=== PATIENT | male | born 1955 | race Caucasian/White ===

== ENCOUNTER 2018-03-08 10:42 | Inpatient (IN) ==
[2018-03-08 12:03] LABS: Basophils % 0.7 % (0.0-0.8); Eosinophils # 0.2 10*3/uL (0.0-0.87); Eosinophils % 3.2 % (0.00-10.9); Hemoglobin 14.9 GM/DL (14.0-18.0); Immature Granulocytes % 0.3 %; Immature Granulocytes Absolute 0.02 #; Lymphocytes # 3.1 10*3/uL (1.4-4.0); Lymphocytes % 51.7 % (21.2-54.2); Mean Corpuscular HGB Conc 33.1 GM/DL (32-36); Mean Corpuscular Hemoglobin 31 PG (27-34); Mean Platelet Volume 9.1 FL (9.6-12.0); Monocytes # 0.7 10*3/uL (0.11-0.8); Monocytes % 11.5 % (1.7-12.7); Neutrophils # 1.9 10*3/uL (1.4-7.4); Neutrophils % 32.6 % (38.7-73.9); Platelet Count 241 T/CUMM (130-400); Red Blood Count 4.89 MC/CUMM (3.8-5.5); Red Cell Distribution Width 13.4 % (9.3-17.3); White Blood Count 5.9 T/CUMM (4-12)
[2018-03-08 12:19] LABS: Bilirubin,Total 0.4 MG/DL (0.2-1.0); Osmolality,Calculated 279.5 MOS/KG (273-304); Potassium 4.1 MMOL/L (3.5-5.1); Total Protein 8.2 G/DL (6.4-8.3)
[2018-03-08 12:22] LABS: INR 1.1; PT Patient Result 11.4 SECS; Partial Thromboplastin Time 28.8 SECS (0-40)
[2018-03-08 12:50] LABS: Eosinophils 3 % (0-10); Lymphocytes 63 % (20-55); Platelet Estimate Normal; Segmented Neutrophils 25 % (50-85); Total Cells Counted 100
[2018-03-08] MEDS ORDERED: NITROGLYCERIN 2% OINT 1 INCH/GM PACK TOP STA (13:26)
[2018-03-08] MEDS ORDERED: ENOXAPARIN 100 MG/ML SYRINGE SUBCUT STA (13:26)
[2018-03-08] MEDS ORDERED: ASPIRIN 325 MG TABLET PO STA (13:26)
[2018-03-08] MEDS ORDERED: DIAZEPAM 5 MG TABLET PO ONE (14:17)
[2018-03-08] MEDS ORDERED: diphenhydrAMINE CAP 25 MG CAPSULE PO ONE (14:17)
[2018-03-08] MEDS ORDERED: HEPARIN/NACL 0.9% 2 UNITS/ML 1,000 ML IV ONE (14:39)
[2018-03-08] MEDS ORDERED: MIDAZOLAM 2 MG/2 ML VIAL ONE ×2 (14:56→15:11)
[2018-03-08] MEDS ORDERED: NITROGLYCERIN DRIP 50 MG/250 ML BOTTLE IV ONE (14:56)
[2018-03-08] MEDS ORDERED: LIDOCAINE 1% 20 ML VIAL ONE (14:56)
[2018-03-08] MEDS ORDERED: VERAPAMIL 5 MG/2 ML VIAL ONE (14:56)
[2018-03-08] MEDS ORDERED: fentaNYL 100 MCG/2 ML VIAL ONE (14:56)
[2018-03-08] MEDS ORDERED: TICAGRELOR 90 MG TABLET ONE (15:21)
[2018-03-08] MEDS ORDERED: ENOXAPARIN 60 MG/0.6 ML SYRINGE ONE ×2 (15:21→15:23)
[2018-03-08] MEDS ORDERED: HEPARIN/NACL 0.9% 2 UNITS/ML 500 ML IV ONE (15:29)
[2018-03-08] MEDS ORDERED: ONDANSETRON 4 MG/2 ML VIAL IV PRN (15:52)
[2018-03-08] MEDS ORDERED: NITROGLYCERIN SL 0.4 MG TABLET SL PRN (15:52)
[2018-03-08] MEDS ORDERED: ZALEPLON 5 MG CAPSULE PO PRN (15:52)
[2018-03-08] MEDS ORDERED: LORazepam 0.5 MG TABLET PO PRN (15:58)
[2018-03-08] MEDS ORDERED: NITROGLYCERIN DRIP 50 MG/250 ML BOTTLE IV PRN (16:12)
[2018-03-08] MEDS: SODIUM CHLORIDE 0.45% 1,000 ML IV SCH ×2 (16:36→23:33)
[2018-03-08] MEDS: MORPHINE 4 MG/1 ML VIAL IV PRN ×2 (16:37→23:13)
[2018-03-08] MEDS: PANTOPRAZOLE 40 MG TABLET PO SCH (16:40)
[2018-03-08] MEDS: LISINOPRIL 2.5 MG TABLET PO SCH (16:40)
[2018-03-08] MEDS: NICOTINE 21 MG/24 HR PATCH TRANSDERM SCH (18:17)
[2018-03-08] MEDS: ROSUVASTATIN 20 MG TABLET PO SCH (22:24)
[2018-03-08] MEDS: TICAGRELOR 90 MG TABLET PO SCH (22:25)
[2018-03-08] MEDS: CARVEDILOL 3.125 MG TABLET PO SCH (22:25)
[2018-03-09] MEDS: SODIUM CHLORIDE 0.45% 1,000 ML IV SCH ×3 (03:09→10:57)
[2018-03-09 05:48] LABS: Basophils % 0.4 % (0.0-0.8); Eosinophils # 0.1 10*3/uL (0.0-0.87); Eosinophils % 1.6 % (0.00-10.9); Hematocrit 39.6 VOL% (42.0-52.0); Immature Granulocytes % 0.4 %; Immature Granulocytes Absolute 0.04 #; Lymphocytes % 33.1 % (21.2-54.2); Mean Corpuscular HGB Conc 32.8 GM/DL (32-36); Mean Corpuscular Hemoglobin 30 PG (27-34); Mean Corpuscular Volume 90.8 FL (87-102); Mean Platelet Volume 8.8 FL (9.6-12.0); Monocytes # 0.8 10*3/uL (0.11-0.8); Monocytes % 8.6 % (1.7-12.7); Neutrophils % 55.9 % (38.7-73.9); Platelet Count 223 T/CUMM (130-400); Red Blood Count 4.36 MC/CUMM (3.8-5.5); Red Cell Distribution Width 13.3 % (9.3-17.3)
[2018-03-09 06:05] LABS: Calcium 8.1 MG/DL (8.5-10.1); Osmolality,Calculated 275.7 MOS/KG (273-304); Potassium 3.8 MMOL/L (3.5-5.1)
[2018-03-09 06:07] LABS: Risk Ratio 4.86; VLDL CHOLESTEROL 39.4 MG/DL
[2018-03-09] MEDS: ASPIRIN EC 81 MG TABLET PO SCH (08:08)
[2018-03-09] MEDS: PANTOPRAZOLE 40 MG TABLET PO SCH (08:08)
[2018-03-09] MEDS: LISINOPRIL 2.5 MG TABLET PO SCH (08:08)
[2018-03-09] MEDS: CARVEDILOL 3.125 MG TABLET PO SCH ×2 (08:08→16:57)
[2018-03-09] MEDS: NICOTINE 21 MG/24 HR PATCH TRANSDERM SCH (08:08)
[2018-03-09] MEDS: TICAGRELOR 90 MG TABLET PO SCH ×2 (08:08→20:31)
[2018-03-09] MEDS: ROSUVASTATIN 20 MG TABLET PO SCH (20:31)
[2018-03-10 05:37] LABS: Basophils % 0.7 % (0.0-0.8); Eosinophils # 0.2 10*3/uL (0.0-0.87); Eosinophils % 2.6 % (0.00-10.9); Hematocrit 42.2 VOL% (42.0-52.0); Immature Granulocytes % 0.3 %; Immature Granulocytes Absolute 0.02 #; Lymphocytes # 2.7 10*3/uL (1.4-4.0); Lymphocytes % 44.3 % (21.2-54.2); Mean Corpuscular HGB Conc 33.2 GM/DL (32-36); Mean Corpuscular Hemoglobin 30 PG (27-34); Mean Corpuscular Volume 90.8 FL (87-102); Mean Platelet Volume 8.9 FL (9.6-12.0); Monocytes # 0.7 10*3/uL (0.11-0.8); Monocytes % 11.6 % (1.7-12.7); Neutrophils # 2.5 10*3/uL (1.4-7.4); Neutrophils % 40.5 % (38.7-73.9); Platelet Count 225 T/CUMM (130-400); Red Blood Count 4.65 MC/CUMM (3.8-5.5); Red Cell Distribution Width 13.3 % (9.3-17.3); White Blood Count 6.1 T/CUMM (4-12)
[2018-03-10 06:15] LABS: Calcium 8.3 MG/DL (8.5-10.1); Osmolality,Calculated 281.3 MOS/KG (273-304); Potassium 3.8 MMOL/L (3.5-5.1)
[2018-03-10 07:45] VITALS: BP 126/75
[2018-03-10] MEDS: LISINOPRIL 2.5 MG TABLET PO SCH (08:34)
[2018-03-10] MEDS: TICAGRELOR 90 MG TABLET PO SCH (08:34)
[2018-03-10] MEDS: PANTOPRAZOLE 40 MG TABLET PO SCH (08:34)
[2018-03-10] MEDS: ASPIRIN EC 81 MG TABLET PO SCH (08:34)
[2018-03-10] MEDS: CARVEDILOL 3.125 MG TABLET PO SCH (08:34)
[2018-03-10] MEDS: NICOTINE 21 MG/24 HR PATCH TRANSDERM SCH (08:35)
== END 2018-03-10 11:24 | disposition home or self-care (01) | DRG 247 ==
LOC: N.ED 10:42 → N.EDINP 14:17 → N.ICU 16:07 → N.TELES 03-09 12:37
PROVIDERS: ADMIT Internal Medicine Cardiovascular Disease; ATTEND Internal Medicine Cardiovascular Disease
PROC: CLCCHCL (ICD-10-PCS; 2018-03-08 15:30)

== ENCOUNTER 2021-10-27 20:58 | Inpatient (IN) ==
[2021-10-27] MEDS ORDERED: ASPIRIN 325 MG TABLET PO STA (22:55)
[2021-10-27] MEDS ORDERED: SODIUM CHLORIDE 0.9% 500 ML IV STA (22:55)
[2021-10-27] MEDS ORDERED: NITROGLYCERIN 2% OINT 1 INCH/GM PACK TOP STA (22:55)
[2021-10-27] MEDS ORDERED: MORPHINE 2 MG/1 ML SYRINGE IV STA (22:55)
[2021-10-27] MEDS ORDERED: ALUM/MAG/SIMETH/LIDO VISC 1:1 30 ML BOTTLE PO STA (22:55)
[2021-10-27] MEDS ORDERED: ONDANSETRON 4 MG/2 ML VIAL IV STA (22:55)
[2021-10-27] MEDS ORDERED: PANTOPRAZOLE 40 MG VIAL IV STA (22:55)
[2021-10-27] MEDS ORDERED: ENOXAPARIN 100 MG/ML SYRINGE SUBCUT STA (23:00)
[2021-10-28 00:11] LABS: Alanine Aminotransferase 28 U/L (16-61); Albumin 3.8 G/DL (3.4-5.0); Alkaline Phosphatase 62 U/L (45-117); Aspartate Amino Transferase 21 U/L (0-37); Bilirubin,Total < 0.39 MG/DL (0.20-1.00); Blood Urea Nitrogen 13 MG/DL (7-18); Calcium 9.3 MG/DL (8.5-10.1); Carbon Dioxide 27 MMOL/L (21-32); Chloride 109 MMOL/L (98-107); Estimated Glom Filtration Rate 73 ML/MIN; Glucose 145 MG/DL (74-106); Osmolality,Calculated 283.3 MOS/KG (273-304); Potassium 4.5 MMOL/L (3.5-5.1); Sodium 141 MMOL/L (136-145); Total Protein 7.3 G/DL (6.4-8.2)
[2021-10-28 00:34] LABS: Basophils # 0.1 10*3/uL (0.0-0.2); Basophils % 0.9 % (0.0-0.8); Eosinophils # 0.2 10*3/uL (0.0-0.87); Eosinophils % 2.5 % (0.00-10.9); Hematocrit 47.1 VOL% (42.0-52.0); Hemoglobin 15.4 GM/DL (14.0-18.0); Immature Granulocytes % 0.7 %; Immature Granulocytes Absolute 0.06 #; Lymphocytes # 3.9 10*3/uL (1.4-4.0); Lymphocytes % 47.9 % (21.2-54.2); Mean Corpuscular HGB Conc 32.7 GM/DL (32-36); Mean Corpuscular Volume 102.8 FL (87-102); Mean Platelet Volume 9.6 FL (9.6-12.0); Monocytes # 0.8 10*3/uL (0.11-0.8); Monocytes % 9.4 % (1.7-12.7); Neutrophils % 38.6 % (38.7-73.9); Platelet Count 227 T/CUMM (130-400); Red Blood Count 4.58 MC/CUMM (3.8-5.5); Red Cell Distribution Width 13.1 % (9.3-17.3); White Blood Count 8.1 T/CUMM (4-12)
[2021-10-28 00:57] LABS: Eosinophils 2 % (0-10); Lymphocytes 49 % (20-55); Platelet Estimate Adequate; Total Cells Counted 100
[2021-10-28] MEDS ORDERED: NICOTINE 21 MG/24 HR PATCH TRANSDERM PRN (02:07)
[2021-10-28] MEDS ORDERED: GLUCAGON 1 MG VIAL IM PRN (02:07)
[2021-10-28] MEDS ORDERED: hydrALAZINE 20 MG/1 ML VIAL IV PRN (02:07)
[2021-10-28] MEDS ORDERED: ONDANSETRON 4 MG/2 ML VIAL IV PRN (02:07)
[2021-10-28] MEDS ORDERED: SIMETHICONE CHEW 125 MG TABLET PO PRN (02:07)
[2021-10-28] MEDS ORDERED: NITROGLYCERIN SL 0.4 MG TABLET SL PRN (02:12)
[2021-10-28] MEDS ORDERED: DEXTROSE 10% 250 ML BAG IV PRN (02:16)
[2021-10-28] MEDS ORDERED: ENOXAPARIN 80 MG/0.8 ML SYRINGE SUBCUT SCH (02:30)
[2021-10-28 04:30] LABS: Basophils # 0.1 10*3/uL (0.0-0.2); Basophils % 1.2 % (0.0-0.8); Eosinophils # 0.1 10*3/uL (0.0-0.87); Immature Granulocytes % 0.8 %; Immature Granulocytes Absolute 0.05 #; Lymphocytes # 3.6 10*3/uL (1.4-4.0); Lymphocytes % 55.6 % (21.2-54.2); Mean Corpuscular HGB Conc 32.6 GM/DL (32-36); Mean Corpuscular Volume 103.6 FL (87-102); Mean Platelet Volume 9.5 FL (9.6-12.0); Monocytes # 0.6 10*3/uL (0.11-0.8); Monocytes % 9.3 % (1.7-12.7); Neutrophils % 31.1 % (38.7-73.9); Platelet Count 193 T/CUMM (130-400); Red Blood Count 4.15 MC/CUMM (3.8-5.5); Red Cell Distribution Width 13.1 % (9.3-17.3); White Blood Count 6.5 T/CUMM (4-12)
[2021-10-28 05:05] LABS: Osmolality,Calculated 283.1 MOS/KG (273-304); Potassium 4.6 MMOL/L (3.5-5.1); Risk Ratio 4.24; VLDL Cholesterol 24.2 MG/DL
[2021-10-28 05:11] LABS: Eosinophils 2 % (0-10); Lymphocytes 55 % (20-55); Total Cells Counted 100
[2021-10-28 05:12] LABS: Platelet Estimate Adequate
[2021-10-28 05:13] LABS: Macrocytosis 1+
[2021-10-28] MEDS: INSULIN REGULAR 100 UNIT/ML SUBCUT SCH ×4 (07:52→21:34)
[2021-10-28] MEDS: carvediloL 3.125 MG TABLET PO SCH ×2 (07:56→17:25)
[2021-10-28] MEDS: SODIUM CHLORIDE 0.9% 1,000 ML IV SCH ×3 (07:56→23:30)
[2021-10-28] MEDS ORDERED: MAGNESIUM SULF RIDER 2 GM/50 ML PREMIX IV PRN (07:57)
[2021-10-28] MEDS ORDERED: POTASSIUM CHLORIDE RIDER 10 MEQ/100 ML PREMIX IV PRN (07:57)
[2021-10-28] MEDS: DOCUSATE SODIUM 100 MG CAPSULE PO SCH ×2 (09:15→21:20)
[2021-10-28] MEDS: ZINC GLUCONATE 50 MG TABLET PO SCH (09:15)
[2021-10-28] MEDS: PANTOPRAZOLE 40 MG TABLET PO SCH (09:15)
[2021-10-28] MEDS: ASPIRIN 325 MG TABLET PO SCH (09:15)
[2021-10-28] MEDS: lisinopriL 10 MG TABLET PO SCH (09:15)
[2021-10-28] MEDS: ISOSORBIDE MONONITRATE 30 MG TABLET PO SCH (09:15)
[2021-10-28] MEDS ORDERED: HEPARIN/NACL 0.9% 2 UNITS/ML 2,000 UNIT/1,000 ML BAG IV ONE (10:16)
[2021-10-28] MEDS ORDERED: diphenhydrAMINE CAP 25 MG CAPSULE ONE (11:05)
[2021-10-28] MEDS: ENOXAPARIN 80 MG/0.8 ML SYRINGE SUBCUT SCH ×2 (11:11→22:53)
[2021-10-28] MEDS ORDERED: diphenhydrAMINE CAP 50 MG CAPSULE PO ONE (11:15)
[2021-10-28] MEDS ORDERED: DIAZEPAM 5 MG TABLET PO ONE (11:15)
[2021-10-28] MEDS ORDERED: NITROGLYCERIN DRIP 50 MG/250 ML BOTTLE IV ONE (12:06)
[2021-10-28] MEDS ORDERED: fentaNYL 100 MCG/2 ML VIAL ONE (12:06)
[2021-10-28] MEDS ORDERED: MIDAZOLAM 2 MG/2 ML VIAL ONE (12:06)
[2021-10-28] MEDS ORDERED: VERAPAMIL 5 MG/2 ML VIAL ONE (12:07)
[2021-10-28] MEDS ORDERED: ENOXAPARIN 60 MG/0.6 ML SYRINGE ONE (12:28)
[2021-10-28] MEDS ORDERED: TICAGRELOR 90 MG TABLET ONE (13:00)
[2021-10-28] MEDS: NON-FORMULARY MEDICATION (Bictegrav-Emtricit-Tenofov Ala [Biktarvy] 50-200-25 mg Tablet) PO SCH (15:26)
[2021-10-28] MEDS: ACETAMINOPHEN 325 MG TABLET PO PRN (17:28)
[2021-10-28] MEDS: TICAGRELOR 90 MG TABLET PO SCH (21:20)
[2021-10-28] MEDS: ATORVASTATIN 40 MG TABLET PO SCH (21:20)
[2021-10-29] MEDS: ACETAMINOPHEN 325 MG TABLET PO PRN (04:27)
[2021-10-29 04:51] LABS: Basophils # 0.1 10*3/uL (0.0-0.2); Basophils % 1.1 % (0.0-0.8); Eosinophils # 0.2 10*3/uL (0.0-0.87); Eosinophils % 1.8 % (0.00-10.9); Hematocrit 44.1 VOL% (42.0-52.0); Hemoglobin 14.2 GM/DL (14.0-18.0); Immature Granulocytes % 0.5 %; Immature Granulocytes Absolute 0.04 #; Lymphocytes # 3.2 10*3/uL (1.4-4.0); Mean Corpuscular HGB Conc 32.2 GM/DL (32-36); Mean Corpuscular Volume 103.3 FL (87-102); Mean Platelet Volume 9.2 FL (9.6-12.0); Monocytes # 0.9 10*3/uL (0.11-0.8); Monocytes % 10.1 % (1.7-12.7); Neutrophils % 48.5 % (38.7-73.9); Platelet Count 194 T/CUMM (130-400); Red Blood Count 4.27 MC/CUMM (3.8-5.5); Red Cell Distribution Width 13.3 % (9.3-17.3); White Blood Count 8.4 T/CUMM (4-12)
[2021-10-29 05:05] LABS: Calcium 8.2 MG/DL (8.5-10.1); Potassium 4.8 MMOL/L (3.5-5.1)
[2021-10-29] MEDS: INSULIN REGULAR 100 UNIT/ML SUBCUT SCH ×4 (08:34→21:53)
[2021-10-29] MEDS: TICAGRELOR 90 MG TABLET PO SCH ×2 (09:22→21:52)
[2021-10-29] MEDS: lisinopriL 10 MG TABLET PO SCH (09:22)
[2021-10-29] MEDS: ASPIRIN 325 MG TABLET PO SCH (09:22)
[2021-10-29] MEDS: ISOSORBIDE MONONITRATE 30 MG TABLET PO SCH (09:22)
[2021-10-29] MEDS: carvediloL 3.125 MG TABLET PO SCH (09:22)
[2021-10-29] MEDS: PANTOPRAZOLE 40 MG TABLET PO SCH (09:22)
[2021-10-29] MEDS: ZINC GLUCONATE 50 MG TABLET PO SCH (09:22)
[2021-10-29] MEDS: DOCUSATE SODIUM 100 MG CAPSULE PO SCH ×2 (09:23→21:52)
[2021-10-29] MEDS: NON-FORMULARY MEDICATION (Bictegrav-Emtricit-Tenofov Ala [Biktarvy] 50-200-25 mg Tablet) PO SCH (09:31)
[2021-10-29] MEDS: SODIUM CHLORIDE 0.9% 1,000 ML IV SCH (09:34)
[2021-10-29] MEDS: carvediloL 6.25 MG TABLET PO SCH (16:47)
[2021-10-29] MEDS: ATORVASTATIN 40 MG TABLET PO SCH (21:52)
[2021-10-29] MEDS ORDERED: ENOXAPARIN 40 MG/0.4 ML SYRINGE SUBCUT SCH (22:00)
[2021-10-30 05:27] LABS: Basophils # 0.1 10*3/uL (0.0-0.2); Eosinophils # 0.1 10*3/uL (0.0-0.87); Eosinophils % 1.8 % (0.00-10.9); Hematocrit 42.6 VOL% (42.0-52.0); Immature Granulocytes % 0.3 %; Immature Granulocytes Absolute 0.02 #; Lymphocytes # 3.4 10*3/uL (1.4-4.0); Lymphocytes % 47.5 % (21.2-54.2); Mean Corpuscular HGB Conc 32.9 GM/DL (32-36); Mean Corpuscular Volume 103.4 FL (87-102); Mean Platelet Volume 9.7 FL (9.6-12.0); Monocytes # 0.7 10*3/uL (0.11-0.8); Monocytes % 9.8 % (1.7-12.7); Neutrophils % 39.6 % (38.7-73.9); Platelet Count 201 T/CUMM (130-400); Red Blood Count 4.12 MC/CUMM (3.8-5.5); White Blood Count 7.1 T/CUMM (4-12)
[2021-10-30 05:45] LABS: Calcium 9.2 MG/DL (8.5-10.1); Osmolality,Calculated 284.1 MOS/KG (273-304); Potassium 4.2 MMOL/L (3.5-5.1)
[2021-10-30 06:58] LABS: Eosinophils 2 % (0-10); Lymphocytes 33 % (20-55); Platelet Estimate Adequate; Total Cells Counted 100
[2021-10-30 08:02] VITALS: BP 171/87
[2021-10-30] MEDS ORDERED: ASPIRIN EC 81 MG TABLET PO SCH (09:00)
[2021-10-30] MEDS: INSULIN REGULAR 100 UNIT/ML SUBCUT SCH (10:14)
[2021-10-30] MEDS: ZINC GLUCONATE 50 MG TABLET PO SCH (10:15)
[2021-10-30] MEDS: lisinopriL 10 MG TABLET PO SCH (10:15)
[2021-10-30] MEDS: carvediloL 6.25 MG TABLET PO SCH (10:15)
[2021-10-30] MEDS: TICAGRELOR 90 MG TABLET PO SCH (10:16)
[2021-10-30] MEDS: ISOSORBIDE MONONITRATE 30 MG TABLET PO SCH (10:16)
[2021-10-30] MEDS: PANTOPRAZOLE 40 MG TABLET PO SCH (10:16)
[2021-10-30] MEDS: DOCUSATE SODIUM 100 MG CAPSULE PO SCH (10:17)
[2021-10-30] MEDS: NON-FORMULARY MEDICATION (Bictegrav-Emtricit-Tenofov Ala [Biktarvy] 50-200-25 mg Tablet) PO SCH (10:17)
[2021-11-06] MEDS ORDERED: CYANOCOBALAMIN 1000 MCG/1 ML VIAL IM SCH (07:00)
== END 2021-10-30 10:45 | disposition home or self-care (01) | DRG 247 ==
LOC: N.ED 20:58 → N.EDINP 10-28 02:07 → N.TELEN 10-28 11:50
PROVIDERS: ADMIT Internal Medicine; ATTEND Internal Medicine

== ENCOUNTER 2022-04-09 14:38 | Observation (INO) ==
[2022-04-09] MEDS ORDERED: NITROGLYCERIN SL 0.4 MG TABLET SL STA (15:02)
[2022-04-09] MEDS ORDERED: ASPIRIN CHEW 81 MG TABLET PO STA (15:02)
[2022-04-09] MEDS ORDERED: MORPHINE 2 MG/1 ML SYRINGE IV STA (15:03)
[2022-04-09 15:20] LABS: Basophils # 0.1 10*3/uL (0.0-0.2); Basophils % 1.2 % (0.0-0.8); Eosinophils # 0.2 10*3/uL (0.0-0.87); Eosinophils % 2.4 % (0.00-10.9); Hematocrit 49.2 VOL% (42.0-52.0); Hemoglobin 16.6 GM/DL (14.0-18.0); Immature Granulocytes % 0.4 %; Immature Granulocytes Absolute 0.03 #; Lymphocytes # 3.9 10*3/uL (1.4-4.0); Mean Corpuscular HGB Conc 33.7 GM/DL (32-36); Mean Corpuscular Volume 101.4 FL (87-102); Mean Platelet Volume 9.2 FL (9.6-12.0); Monocytes # 0.8 10*3/uL (0.11-0.8); Monocytes % 10.1 % (1.7-12.7); Neutrophils % 33.9 % (38.7-73.9); Platelet Count 213 T/CUMM (130-400); Red Blood Count 4.85 MC/CUMM (3.8-5.5); White Blood Count 7.6 T/CUMM (4-12)
[2022-04-09 15:40] LABS: Albumin 3.8 G/DL (3.4-5.0); Bilirubin,Total 0.4 MG/DL (0.20-1.00); Osmolality,Calculated 263.5 MOS/KG (273-304); Potassium 3.7 MMOL/L (3.5-5.1); Total Protein 8.1 G/DL (6.4-8.2)
[2022-04-09 15:41] LABS: Eosinophils 1 % (0-10); Lymphocytes 53 % (20-55); Platelet Estimate Adequate; Total Cells Counted 100
[2022-04-09] MEDS ORDERED: DOCUSATE SODIUM 100 MG CAPSULE PO PRN (17:17)
[2022-04-09] MEDS ORDERED: MORPHINE 2 MG/1 ML SYRINGE IV PRN (17:17)
[2022-04-09] MEDS ORDERED: ACETAMINOPHEN 325 MG TABLET PO PRN (17:17)
[2022-04-09] MEDS ORDERED: ONDANSETRON 4 MG/2 ML VIAL IV PRN (17:17)
[2022-04-09] MEDS ORDERED: GLUCAGON 1 MG VIAL IM PRN (17:17)
[2022-04-09] MEDS ORDERED: hydrALAZINE 20 MG/1 ML VIAL IV PRN (17:17)
[2022-04-09] MEDS ORDERED: traZODone 50 MG TABLET PO PRN (17:17)
[2022-04-09] MEDS ORDERED: DEXTROSE 10% 250 ML BAG IV PRN (17:17)
[2022-04-09] MEDS ORDERED: NITROGLYCERIN SL 0.4 MG TABLET SL PRN (17:22)
[2022-04-09] MEDS: carvediloL 6.25 MG TABLET PO SCH (17:46)
[2022-04-09] MEDS ORDERED: INFLUENZA VIRUS VACCINE 0.5 ML SYRINGE IM ONE (19:59)
[2022-04-09] MEDS: ENOXAPARIN 40 MG/0.4 ML SYRINGE SUBCUT SCH (20:26)
[2022-04-10 05:30] LABS: Risk Ratio 4.27; VLDL Cholesterol 53.2 MG/DL
[2022-04-10] MEDS: carvediloL 6.25 MG TABLET PO SCH ×2 (09:43→17:08)
[2022-04-10] MEDS: ASPIRIN EC 81 MG TABLET PO SCH (09:44)
[2022-04-10] MEDS: PANTOPRAZOLE 40 MG TABLET PO SCH (09:49)
[2022-04-10] MEDS: lisinopriL 10 MG TABLET PO SCH (09:49)
[2022-04-10] MEDS: ISOSORBIDE MONONITRATE 30 MG TABLET PO SCH (09:49)
[2022-04-10] MEDS: CLOPIDOGREL 75 MG TABLET PO SCH (09:49)
[2022-04-10] MEDS: NON-FORMULARY MEDICATION (Bictegrav-Emtricit-Tenofov Ala [Biktarvy] 50-200-25 mg Tablet) PO SCH (09:50)
[2022-04-10] MEDS ORDERED: HEPARIN/NACL 0.9% 2 UNITS/ML 2,000 UNIT/1,000 ML BAG IV ONE (12:46)
[2022-04-10] MEDS ORDERED: POTASSIUM CHLORIDE RIDER 10 MEQ/100 ML PREMIX IV PRN (13:32)
[2022-04-10] MEDS ORDERED: MAGNESIUM SULF RIDER 2 GM/50 ML PREMIX IV PRN (13:32)
[2022-04-10] MEDS ORDERED: DIAZEPAM 5 MG TABLET PO ONE (13:33)
[2022-04-10] MEDS ORDERED: diphenhydrAMINE CAP 50 MG CAPSULE PO ONE (13:33)
[2022-04-10] MEDS ORDERED: SODIUM CHLORIDE 0.45% 1,000 ML IV SCH (14:00)
[2022-04-10] MEDS ORDERED: fentaNYL 100 MCG/2 ML VIAL ONE (14:06)
[2022-04-10] MEDS ORDERED: MIDAZOLAM 2 MG/2 ML VIAL ONE (14:06)
[2022-04-10] MEDS: ENOXAPARIN 40 MG/0.4 ML SYRINGE SUBCUT SCH (20:42)
[2022-04-10] MEDS ORDERED: ATORVASTATIN 40 MG TABLET PO SCH (21:00)
[2022-04-11 07:39] VITALS: BP 147/84
[2022-04-11 08:12] LABS: Basophils # 0.1 10*3/uL (0.0-0.2); Basophils % 1.2 % (0.0-0.8); Eosinophils # 0.1 10*3/uL (0.0-0.87); Eosinophils % 1.7 % (0.00-10.9); Hematocrit 49.2 VOL% (42.0-52.0); Hemoglobin 16.3 GM/DL (14.0-18.0); Immature Granulocytes % 0.7 %; Immature Granulocytes Absolute 0.05 #; Lymphocytes # 3.4 10*3/uL (1.4-4.0); Lymphocytes % 44.5 % (21.2-54.2); Mean Corpuscular HGB Conc 33.1 GM/DL (32-36); Mean Corpuscular Volume 102.3 FL (87-102); Mean Platelet Volume 9.2 FL (9.6-12.0); Monocytes # 0.8 10*3/uL (0.11-0.8); Monocytes % 10.1 % (1.7-12.7); Neutrophils % 41.8 % (38.7-73.9); Platelet Count 208 T/CUMM (130-400); Red Blood Count 4.81 MC/CUMM (3.8-5.5); White Blood Count 7.7 T/CUMM (4-12)
[2022-04-11] MEDS: carvediloL 6.25 MG TABLET PO SCH (08:31)
[2022-04-11] MEDS: ISOSORBIDE MONONITRATE 30 MG TABLET PO SCH (08:31)
[2022-04-11] MEDS: ASPIRIN EC 81 MG TABLET PO SCH (08:31)
[2022-04-11] MEDS: PANTOPRAZOLE 40 MG TABLET PO SCH (08:31)
[2022-04-11] MEDS: CLOPIDOGREL 75 MG TABLET PO SCH (08:31)
[2022-04-11] MEDS: lisinopriL 10 MG TABLET PO SCH (08:31)
[2022-04-11 08:40] LABS: Calcium 9.3 MG/DL (8.5-10.1); Potassium 4.4 MMOL/L (3.5-5.1)
[2022-04-11] MEDS: NON-FORMULARY MEDICATION (Bictegrav-Emtricit-Tenofov Ala [Biktarvy] 50-200-25 mg Tablet) PO SCH (09:10)
== END 2022-04-11 10:40 | disposition home or self-care (01) ==
LOC: N.ED 14:38 → N.EDINP 14:38 → SUATTDRO 17:17 → N.EDINP 18:38 → N.TELES 19:17
PROVIDERS: ADMIT Internal Medicine Geriatric Medicine; ATTEND Family Medicine
PROC: CLCCHCL (ICD-10-PCS; 2022-04-10 13:45)